=== PATIENT | female | born 1950 | race Caucasian/White ===

== ENCOUNTER 2025-03-06 12:59 | Emergency (ER) | payer BC, SELFPAY ==
[2025-03-06 13:02] VITALS: BP 146/98
[2025-03-06 13:41] VITALS: BMI 29.1
--- NOTE | 2025-03-06 14:00 | ED.GENMED ---
History of Present Illness
General
Chief Complaint: Fall
Source: patient
Exam Limitations: none
Time Seen by Provider: 03/06/25 13:30
Nursing documentation reviewed up to this point in time: agreed with
History of Present Illness
History of Present Illness:
SEE mdm
Past History
Past History
ED Past Medical History: None
ED Past Surgical History: None
Social History
Tobacco: Non-smoker
Alcohol: None
Drug: None
Personal:
Living: with family
Review of Systems
Review of Systems
Allergies reviewed?: Yes
All Other Systems: Not applicable
Phy Exam
Physical Exam
Physical Exam:
GENERAL: Alert , in no apparent distress, comfortable at rest
HEAD: NCAT
CV: 2+ DP PULSES B/L
NEUROLOGICAL: Alert and oriented, no focal neuro deficits, , 5/5 strength, sensation intact, ambulation slight limp left leg
SKIN: Warm and dry, normal skin
MUSCULOSKELETAL: moderate L ankles welling, tenderness L lateral mall; no deformity; normal pulse no foot tendenress
L knee normal ROM no obvvious effusion,nontender;
PSYCH: Normal and appropriate interaction.
Course
Orders/Labs/Results
Orders:
Orders
03/06/25 13:04
Ankle, left 3 view CR [CR Ankle - Left Min 3 Views ] Urgent
Comment:
Reason For Exam: fall, pain
CR Knee - Left 4 Or More View* Urgent
Comment:
Reason For Exam: fall, pain
Vital Signs
Initial and Last Documented VS:
Initial Vital Signs
Temp Pulse Resp BP Pulse Ox
36.9 C 98 18 146/98 98
03/06/25 13:02 03/06/25 13:02 03/06/25 13:02 03/06/25 13:02 03/06/25 13:02
Last Documented Vital Signs
Temp Pulse Resp BP Pulse Ox
36.9 C 98 18 146/98 98
03/06/25 13:02 03/06/25 13:02 03/06/25 13:02 03/06/25 13:02 03/06/25 14:01
MDM/Problems Addressed
Differential Diagnosis Includes:
see MDM
MDM/Problems Addressed:
Note:
CHIEF COMPLAINT(S)
Swollen and painful ankle with difficulty walking.
HISTORY OF PRESENT ILLNESS
The patient reports L ankle pain after inversion injury while walking yesterday, accidentally stepped into a hole in the ground and twisted her L ankle. Initially, the patient was able to walk with difficulty and only on the heel but described the
experience as very uncomfortable. The patient denies the need for assistance walking prior to this incident. The patient self-administered oxycodone, which was obtained following a previous dental surgery, for pain relief last night and reported it
to be effective. Further examination revealed a fracture of the fibula�a weight-bearing fracture�without displacement. The explanation provided likened the injury to a spiral fracture due to a twisting mechanism.
PAST MEDICAL HISTORY
The patient mentioned a history of undergoing dental surgery, for which oxycodone was prescribed.
PLAN
- Apply a walking boot to stabilize the fracture and facilitate partial weight-bearing as tolerated.
- Consider the use of a walker at home, especially if stability remains an issue.
- Referral to an orthopedist for further management and follow-up regarding the fibula fracture.
- The orthopedist options provided include groups familiar to the patient.
- Continue oxycodone for pain management if necessary and supplement with ibuprofen for inflammation.
- Advise rest, elevation of the affected limb, and avoidance of bearing weight to aid recovery over the forthcoming four to six weeks.
DIFFERENTIAL DIAGNOSIS
The Differential Diagnosis includes, in no particular order and is not limited to:
1. Ankle sprain
2. Fibula fracture
3. Ligamentous injury
4. Contusion
5. Achilles tendon injury
6. Tibial fracture
7. Peroneal tendon injury
8. Strain of the ankle muscles
9. Septic arthritis
10. Deep vein thrombosis
Please note, some items in the differential diagnosis may overlap or be less likely given certain clinical details. Further evaluation and imaging, potentially warranted by the orthopedist, will guide the ultimate diagnosis and treatment.
74 y/o F
mechanical inversion injury in a hole in the grass causing L ankle pain swelling, difficulty walking yesterday
able to partially weight bear on heel
no deformity ,numbness
no other injuires, mild L knee pain
on exam tender L lateral mall, swelling to the ankle, no foot tenderness, knee full ROM
ankle xray indep reviewed showing spiral L distal fibular fx
given her age/crutches hard to maneuver will recommend partial WBAT but limited, with walking boot and walker
f/u ortho encouraged
*Pulse Oximetry
SaO2: 98
Oxygen Mode of Delivery: Room air
Patient hypoxic: no (98)
*Critical Care Note
Total Time (30-74mins, 75-104mins- exclusive of procedures): Not Applicable
ED Attending Note
-
Portions of this chart may have been created with voice recognition software.� Occasional wrong word or��sound alike� substitutions may have occurred due to the inherent limitations of voice recognition software.
Discharge Plan
Departure
Patient Disposition: Home (Routine Discharge)
Date of Disposition: 03/06/25
Time of Disposition: 14:48
Patient with high blood pressure during this ER visit?: No
Condition: Fair
Discharge Problem:
Fracture of distal end of fibula
Instructions: Ankle Fracture (DC)
Referrals:
Benjamin Evans MD [Active, Orthopedics] - Follow up in 5-7 days
Activity Restrictions/Additional Instructions:
YOU BROKE YOUR DISTAL FIBULA (PART OF YOUR ANKLE)
ELEVATE
ICE OFF AND ON
MOTRIN EVERY 8 HOURS WITH FOOD
YOU CAN TAKE YOUR LEFT OVER OXYCODONE FOR ADDITIONAL PAIN, MAKE SURE TO TAKE A STOOL SOFTENER TO AVOID CONSTIPATION
WEAR THE BOOT WHEN YOU ARE UP AND ABOUT
USE THE WALKER OR CANE TO ASSIST
CALL ORTHOPEDICS FOR FOLLOW UP , TELL THEM THAT YOU WERE SEEN IN THE ER
RETURN FOR ANY COCNERNS.
Interventions
Interventions:
*Risk Screen - Suicide Last Done: 03/06/25 13:02
*General Assessment Last Done: 03/06/25 13:02
*Neglect/Abuse Screening Last Done: 03/06/25 13:02
*ED COVID-19 Vaccine History Last Done: 03/06/25 13:41
*Nursing Disposition Last Done: 03/06/25 15:05
ED-Musculoskeletal Assessment Last Done: 03/06/25 13:41
ED- Neurological Assessment Last Done: 03/06/25 13:41
ED-Skin Assessment Last Done: 03/06/25 13:41
Discharge Date and Time
Discharge Date/Time: 03/06/25 15:06
Print Language: AMHARIC
== END 2025-03-06 15:06 | disposition home or self-care (01) ==
LOC: EMR 12:59
PROVIDERS: EMERGENCY PHYSICIAN Emergency Medicine; FAMILY PHYSICIAN Internal Medicine
DX: S82.832A Other fracture of upper and lower end of left fibula, initial encounter for closed fracture (principal); X50.1XXA Overexertion from prolonged static or awkward postures, initial encounter; Y93.01 Activity, walking, marching and hiking
CPT/HCPCS: 99283; 73564; 73610